=== PATIENT | male | born 1945 | race Caucasian/White ===

== ENCOUNTER → 2021-09-04 13:07 | Outpatient (CLI) | payer OTHER, SELFPAY ==
--- NOTE | ~2021-09-04 | XR_ITS ---
EXAMINATION: XR sacrum coccyx min 2V DATE: 09/04/2021 13:47 INDICATION: Coccygeal pain. Fall. TECHNIQUE: 3 views of the sacrum and coccyx were obtained. COMPARISON: Lumbar spine radiographs 08/19/2010 FINDINGS: Bone alignment is normal. No fracture. There is mild lumbar spondylosis. There is severe cristian mbar facet joint osteoarthritis. There is mild osteoarthritis of the sacroiliac joints and hip joints . IMPRESSION: 1. No fracture. 2. Polyarticular osteoarthritis. Reviewed, dictated and finalized at location A.
== END ==
PROVIDERS: PCP Internal Medicine
DX: M53.3 Sacrococcygeal disorders, not elsewhere classified (principal); M16.0 Bilateral primary osteoarthritis of hip; M47.816 Spondylosis without myelopathy or radiculopathy, lumbar region
CPT/HCPCS: 72220